=== PATIENT | male | born 1985 | race Two or more races ===

== ENCOUNTER 2017-01-25 04:18 | Inpatient (IN) | payer SELFPAY ==
[2017-01-25] MEDS ORDERED: IOPAMIDOL 370 (76%) IV.SOLN 150 ML IV ONE (04:19)
[2017-01-25] MEDS ORDERED: ONDANSETRON 4 MG/2ML 2 ML VIAL ONE ×2 (05:03→08:56)
[2017-01-25] MEDS ORDERED: LACTATED RINGERS 1,000 ML ONE (05:03)
[2017-01-25] MEDS ORDERED: HYDROMORPHONE HCL 1 MG/ML SYRINGE ONE ×2 (05:03→06:41)
[2017-01-25 05:14] LABS: ABSOLUTE NEUTROPHIL COUNT 13.9 K/mm3 (1.8-7.7); BASO % 0.1 % (0.2-1.0); HEMATOCRIT 43.6 % (32.0-52.0); IMM NEUT # 0.1 K/mm3 (0-0.2); IMM NEUT% 0.5 % (0-1); LYMPH # 1.1 (1.0-4.8); MEAN CELL VOLUME 81.5 fl (80.0-94.0); MEAN CORPUSCULAR HGB CONC 34.4 g/dl (33.0-37.0); MEAN PLATELET VOLUME 9.7 fl (7.4-10.4); MONO # 0.8 (0.0-0.8); MONO % 4.8 % (4-12); NEUT % 87.6 % (43-75); PLATELET COUNT 231 K/mm3 (130-400); RED CELL DISTRIBUTION WIDTH 11.9 % (11.5-14.5)
[2017-01-25 05:36] LABS: ALB/GLOB RATIO 1.2 (>1.0); ALBUMIN 4.5 gm/dL (3.5-5.7); CALCIUM 12.2 mg/dL (8.6-10.3)
[2017-01-25 06:10] LABS: PH,URINE 6.5 (5.0-8.0); URINE BILIRUBIN NEGATIVE (NEGATIVE); URINE BLOOD 3+ (NEGATIVE); URINE GLUCOSE (UA) NEGATIVE (NEGATIVE); URINE LEUKOCYTE ESTERASE NEGATIVE (NEGATIVE); URINE NITRITE NEGATIVE (NEGATIVE); URINE PROTEIN 2+ (NEGATIVE); URINE UROBILINOGEN NORMAL (0-1 mg/dl)
[2017-01-25 06:11] LABS: URINE COLOR AMBER
[2017-01-25 06:12] LABS: URINE APPEARANCE HAZY
[2017-01-25 06:21] LABS: URINE BACTERIA 0; URINE EPITHELIAL CELLS 0-2 /hpf; URINE RBC 50-60 /hpf
[2017-01-25] MEDS ORDERED: METRONIDAZOLE 500 MG/NS 100 ML 100 ML IV ONE (06:35)
[2017-01-25] MEDS ORDERED: CEFTRIAXONE 1 GRAM DUPLEX 50 ML IV ONE (07:10)
--- NOTE | 2017-01-25 07:12 | CT ---
EXAMINATION: Contrast enhanced CT scan of the abdomen and pelvis. CLINICAL INDICATION: Recent back surgery. Abdominal pain and vomiting. COMPARISON: None TECHNIQUE: Oral contrast: None Following uneventful administration of 125 mL of Isovue 370, intravenously axial images were acquired from just above the domes of the diaphragm to the iliac crest. A CT scan of the pelvis was also obtained from the iliac crest to the initial tuberosities. Stacked axial, sagittal, and coronal images were reviewed. Findings: Abdomen CT: (Contrast-enhanced): Lung bases exhibit mild dependent atelectasis. No mass or consolidation is identified. The liver exhibits diminished attenuation throughout compatible with fatty infiltration. There is cholelithiasis without evidence of cholecystitis or biliary obstruction. The spleen size and attenuation are within normal limits. The pancreas is normal in size and contours. No inflammatory stranding is identified. The pancreatic duct is unremarkable. The adrenals are unremarkable. The kidneys are without mass or hydronephrosis. No nephrolithiasis is identified. The abdominal aorta unremarkable. There is no retroperitoneal adenopathy identified. The stomach is unremarkable. The visualized segments of small and large bowel are within normal limits. The osseous structures exhibit no displaced fracture. No lytic or blastic lesions are identified. Pelvic CT: (Contrast -enhanced): There is appendicitis. The appendix is dilated up to approximately 1.7 cm. Appendicoliths are present. There is adjacent mesenteric inflammatory stranding. Currently there is no evidence of perforation or abscess. The bladder and distal ureters are unremarkable. No adenopathy is identified. The distal abdominal aorta and iliac vessels are within normal limits. The visualized segments of small and large bowel are within normal limits. Prostate and seminal vesicles are within normal limits. A small slip of free fluid is noted within the pelvis. No displaced fractures are identified. There are no gross osteolytic or blastic lesions. The overlying soft tissues are unremarkable. IMPRESSION: 1. Appendicitis currently without evidence of perforation or abscess. 2. Cholelithiasis. 3. Fatty infiltration liver. 4. Mild bibasilar atelectasis. Findings were communicated by [facility] to the emergency department at: 6:19 AM 01/25/2017
[2017-01-25 07:50] VITALS: BMI 31.0
[2017-01-25] MEDS ORDERED: HYDROMORPHONE HCL 1 MG/ML SYRINGE IV PRN ×2 (07:59→09:56)
[2017-01-25] MEDS ORDERED: BLISTEX LIPSTICK 1 EACH TP PRN ×2 (07:59→12:09)
[2017-01-25] MEDS ORDERED: MENTHOL/CETYLPYRD 1 EACH LOZENGE PO PRN ×2 (07:59→12:09)
[2017-01-25] MEDS ORDERED: LACTATED RINGERS 1,000 ML IV SCH ×2 (08:00→10:00)
[2017-01-25] MEDS ORDERED: HYDROMORPHONE HCL 0.5 MG/0.5 ML SYRINGE IV PRN (08:11)
[2017-01-25] MEDS ORDERED: PUMP TUBING ONE (08:13)
--- NOTE | 2017-01-25 08:41 | PDOC1 ---
HPI: Date of Admission: 01/25/17 Chief Complaint: Abdominal pain History of Present Illness: 32 y/o M with recent back surgery who developed abdominal pain a couple days ago. It started up higher in the abdomen and now is lower down. He says it hurts all over. He has been vomiting a lot. No fevers/chills that he is aware of. No diarrhea. No sick contacts. No other symptoms. He couldn't take the pain/vomiting any more and came in to the ED this morning. Last think to drink was a couple sips of water at 2am. Last thing to eat was fruit last night which he promptly threw up. PMH: Back pain PSH: finger surgery, back surgery (1 week ago) Meds: none Allergies: NKDA FH: Mother of a heart attack at 70 SH: denies tobacco, denies illicit drug use. Occasional ETOH - Review of Systems Reports Shortness of Breath, Reports Nausea, Reports Vomiting, Denies Chest Pain , Denies Diarrhea, Denies Headache, Denies Other H&P Objective GS - Objective Vital Signs Temperature 97.0 F 01/25/17 07:30 Pulse Rate 95 01/25/17 07:30 Respiratory Rate 18 01/25/17 07:30 Blood Pressure 152/90 01/25/17 07:30 O2 Saturation by Pulse Oximetry 100 01/25/17 07:30 Oxygen Delivery Method Room Air Oxygen Flow Rate 0 General: Alert, Oriented x3, Cooperative, No Acute Distress HEENT: Atraumatic, PERRLA, EOMI, Mucous membr. moist/pink Lungs: Clear to Auscultation Bilaterally, Normal Air Movement Cardiovascular: Regular Rate and Rhythm, Normal S1, Normal S2. negative: Murmur Abdomen: Soft, Tenderness (throughout, positive rovsing's sign. localized peritoneal signs RLQ) Skin: Normal Color, Warm, Dry, Intact Psych/Mental Status: Normal Affect, Normal Mood - Assessment/ Plan (1) Acute appendicitis with localized peritonitis Current Visit: Yes Status: Acute Code: K35.3 Inflammation surrounding appendix and fecalith within the appendix. Appendix is dilated with thickened wall. Not sure if it is perforated or not. He needs surgery. I discussed risks/benefits/alternatives with him. I answered his questions. He understands and wishes to proceed. I discussed difference in outcome perforated vs not and possible need for additional time in the hospital with antibiotics and a drain. He understands. - Procedure, Risks, Alternatives, Question PARQ: I discussed the procedure of Laparsocopic appendectomy. We discussed risks including bleeding, infection, injury to the Bowel and possible need to leave a drain. I addressed the patient's concerns and questions. The patient expressed understanding and willingness to proceed.
[2017-01-25] MEDS ORDERED: LIDOCAINE 1%/EPI 1:100,000 (MULTI DOSE) 30 ML VIAL ONE (08:53)
[2017-01-25] MEDS ORDERED: FENTANYL 5 ML ONE ×2 (08:56→10:01)
[2017-01-25] MEDS ORDERED: ROCURONIUM BROMIDE 10 MG/ML DOSE IV ONE ×4 (08:56→09:55)
[2017-01-25] MEDS ORDERED: MIDAZOLAM HCL 5 MG/5 ML VIAL ONE (08:56)
[2017-01-25] MEDS ORDERED: KETOROLAC TROMETHAMINE 30 MG/ML 1 ML VIAL ONE (08:56)
[2017-01-25] MEDS ORDERED: PROPOFOL 20 ML IV ONE (08:56)
[2017-01-25] MEDS ORDERED: LIDOCAINE 2% (MULTI DOSE) 10 ML VIAL ONE (08:56)
[2017-01-25] MEDS ORDERED: MIDAZOLAM HCL 1 MG/ML 2ML VIAL ONE (08:59)
[2017-01-25] MEDS ORDERED: CIPROFLOXACIN IV 400 MG 400 MG in Premix (D5W) 200 ml 1 EACH IV SCH (09:00)
[2017-01-25] MEDS ORDERED: HYDROMORPHONE HCL 2 MG/ML SYRINGE ONE (09:44)
[2017-01-25] MEDS ORDERED: PROMETHAZINE HCL 25 MG/ML VIAL IM PRN (09:56)
[2017-01-25] MEDS ORDERED: FENTANYL 100 MCG/2 ML VIAL IV PRN (09:56)
[2017-01-25] MEDS ORDERED: ONDANSETRON 4 MG/2ML 2 ML VIAL IV PRN (09:56)
[2017-01-25] MEDS ORDERED: GLYCOPYRROLATE 0.2 MG/ML 1ML VIAL ONE (10:06)
[2017-01-25] MEDS ORDERED: NEOSTIGMINE METHYLSULFATE 1 MG/ML DOSE ONE (10:06)
[2017-01-25] MEDS ORDERED: FENTANYL 100 MCG/2 ML VIAL ONE ×2 (10:37→11:44)
--- NOTE | 2017-01-25 11:07 | PCMON ---
Date of Procedure: 01/25/17 Start Time: PREOPERATIVE DIAGNOSIS Acute appendicitis. POSTOPERATIVE DIAGNOSIS Acute appendicitis with perforation. PROCEDURE PERFORMED Laparoscopic appendectomy. COMPLICATIONS None. OPERATIVE FINDINGS Acute appendicitis with perforation ESTIMATED BLOOD LOSS 30 ml BRIEF INDICATIONS PIOTR JAQUEZ is a 32 year old M patient that was admitted with symptoms of acute appendicitis. The preoperative CBC revealed a elevated WBC, physical examination demonstrated RLQ abdominal tenderness, and CT scan supported the diagnosis of acute appendicitis. Risks and benefits of surgery were explained to the patient, and the possible need for conversion to open technique. The patient declined the possible alternatives and agreed to proceed with surgery, providing informed consent. DESCRIPTION OF PROCEDURE The patient was brought to the operating room and placed supine on the operating room table. A surgical briefing was held to verify the correct patient and correct procedure. A general anesthetic was induced uneventfully, followed by the administration of a subcutaneous heparin injection and perioperative antibiotics. Pneumatic compression stockings were placed on the legs and powered on. The abdomen was prepped and draped in a sterile fashion. A 5-mm direct optical view trocar was used to enter the Right upper quadrant under direct vision of the abdominal wall layers. Once inside the abdominal cavity, a pneumoperitoneum was created. No injury to underlying structures occurred with placement of this trocar. Once inside the abdominal cavity, an additional 12-mm port was placed periumbilically in the midline. An additional 5-mm port was placed in the Left lower quadrant. All trocars were placed under direct visualization. There was no injury to underlying structures with placement of these trocars. The patient was placed in Trendelenburg position with the right side up. The appendix was visualized at the base of the cecum. The appendix was mobilized allowing identification of the mesoappendix and the base of the appendix. The cecum was not involved by the appendiceal inflammation. A window was created at the base between the appendix and the mesoappendix, and the appendix was then amputated at its base with a blue load Endo JAYY stapler. There was a large amount of inflammation and purulence around the appendix. Dissection of the mesentery was done with a ligature and there was some oozing that was controlled with the ligature. The area was irrigated with a liter of warm normal saline to remove the purulence and blood. The appendix was then removed through the 12-mm midline port using an Endocatch bag. The staple lines were evaluated for hemostasis; no hemorrhage was identified. The RLQ was irrigated with warm saline. A 10F flat drain was placed in the RLQ through the LLQ port. The left lower quadrant and periumbilical ports were removed under direct laparoscopic vision, and the incisions were hemostatic. The pneumoperitoneum was then evacuated. The fascia of the 12-mm port was closed with 0 Vicryl. All of the ports and instruments were removed. The skin was closed with 4-0 absorbable subcuticular sutures. Steri-Strips were placed over the incisions and sterile dressings applied. The needle and sponge counts were correct x2 at the completion of the procedure. The patient had no apparent intraoperative complication identified.
[2017-01-25] MEDS ORDERED: MAG HYDROX/AL HYDROX/SIMETH 30 ML UDCUP PO PRN (12:09)
[2017-01-25] MEDS ORDERED: MAGNESIUM HYDROXIDE 30 ML UDCUP PO PRN (12:09)
[2017-01-25] MEDS ORDERED: OXYCODONE/ACETAMINOPHEN 5/325 MG TABLET PO PRN (12:09)
[2017-01-25] MEDS ORDERED: BISACODYL 10 MG SUP PR PRN (12:09)
[2017-01-25] MEDS ORDERED: METRONIDAZOLE 500 MG/NS 100 ML 500 MG in Premix (D5W) 100 ml 1 EACH IV SCH (12:30)
[2017-01-25] MEDS ORDERED: PIPERACILLIN-TAZO PREMIX BAG 50 ML IV SCH (12:30)
[2017-01-25] MEDS: PIPERACILLIN-TAZO PREMIX BAG 3.375 G in Premix (D5W) 50 ml 1 EACH IV SCH ×2 (13:01→18:31)
[2017-01-25] MEDS: HYDROMORPHONE HCL 1 MG/ML SYRINGE IV PRN (13:49)
[2017-01-25] MEDS ORDERED: ACETAMINOPHEN 325 MG TABLET PO PRN (14:30)
[2017-01-25] MEDS: HYDROMORPHONE HCL 0.5 MG/0.5 ML SYRINGE IV PRN ×3 (16:51→23:42)
[2017-01-25] MEDS: LACTATED RINGERS 1,000 ML IV SCH (19:38)
[2017-01-25] MEDS: DOCUSATE SODIUM 100 MG CAPSULE PO SCH (20:48)
[2017-01-26] MEDS: PIPERACILLIN-TAZO PREMIX BAG 3.375 G in Premix (D5W) 50 ml 1 EACH IV SCH ×4 (01:01→19:54)
[2017-01-26] MEDS: HYDROMORPHONE HCL 0.5 MG/0.5 ML SYRINGE IV PRN ×4 (02:40→08:28)
[2017-01-26] MEDS: LACTATED RINGERS 1,000 ML IV SCH ×4 (04:34→22:59)
[2017-01-26 06:15] LABS: HEMATOCRIT 41.9 % (32.0-52.0); HEMOGLOBIN 13.9 gm/l (14.0-18.0); MEAN CORPUSCULAR HEMOGLOBIN 28.2 pg (27.0-31.0); MEAN CORPUSCULAR HGB CONC 33.2 g/dl (33.0-37.0); RED CELL DISTRIBUTION WIDTH 12.5 % (11.5-14.5)
[2017-01-26 06:21] LABS: ALB/GLOB RATIO 1.1 (>1.0); ALBUMIN 3.6 gm/dL (3.5-5.7); CALCIUM 9.5 mg/dL (8.6-10.3)
[2017-01-26] MEDS: DOCUSATE SODIUM 100 MG CAPSULE PO SCH ×2 (08:29→21:18)
[2017-01-26] MEDS: HYDROMORPHONE HCL 1 MG/ML SYRINGE IV PRN ×5 (10:12→22:59)
[2017-01-27] MEDS: PIPERACILLIN-TAZO PREMIX BAG 3.375 G in Premix (D5W) 50 ml 1 EACH IV SCH ×4 (01:48→18:40)
[2017-01-27] MEDS: HYDROMORPHONE HCL 1 MG/ML SYRINGE IV PRN ×4 (01:53→20:05)
[2017-01-27] MEDS: LACTATED RINGERS 1,000 ML IV SCH ×2 (08:02→16:30)
--- NOTE | 2017-01-27 09:17 | PDOC43 ---
- Subjective late entry: seen at 10am 01/26/17 Subjective: Reports Flatus, Reports Pain Tolerable, Reports Nausea, Reports Distention, Reports Fever, Denies Bowel Movement - Objective Vital Signs Temperature 98.6 F 01/27/17 07:38 Pulse Rate 106 01/27/17 07:38 Respiratory Rate 18 01/27/17 07:38 Blood Pressure 115/83 01/27/17 07:38 O2 Saturation by Pulse Oximetry 92 01/27/17 07:38 Oxygen Delivery Method Room Air Oxygen Flow Rate 0 Laboratory 01/26/17 05:30 01/26/17 05:30 Active Medication Orders Category Date Time Status Acetaminophen [Tylenol] Med 01/25/17 14:30 Active 650 mg PO Q6H PRN Bisacodyl [Dulcolax] Med 01/25/17 12:09 Active 10 mg [place] DAILY PRN Docusate Sodium [Colace] Med 01/25/17 21:00 Active 100 mg PO BID Hydromorphone HCl [Dilaudid] Med 01/25/17 12:09 Active 0.5 - 1 mg IV Q1H PRN Hydromorphone HCl [Dilaudid] Med 01/25/17 12:18 Active 0.5 - 1 mg IV Q1H PRN Ketorolac Tromethamine [Toradol] Med 01/27/17 12:00 Active 30 mg IV Q6HR Lactated Ringers 1,000 ml Med 01/25/17 12:09 Active IV 125 mls/hr Lip [place] [Blistex] Med 01/25/17 12:09 Active 1 each TP PRN PRN Magnesium Hydroxide [Milk of Magnesia] Med 01/25/17 12:09 Active 30 ml PO DAILY PRN Magnesium/Al Hydrox/Simeth [Maalox Plus] Med 01/25/17 12:09 Active 30 ml PO Q4H PRN Menthol/Cetylpyridinium [Cepacol] Med 01/25/17 12:09 Active 1 each PO PRN PRN Ondansetron 4 mg/2ml Vial [Zofran] Med 01/25/17 12:09 Active 4 mg IV Q4H PRN Oxycodone HCl/Acetaminophen [Percocet 5/325] Med 01/25/17 12:09 Active 1 - 2 tab PO Q4H PRN Piperacillin-Tazo Premix Bag [Zosyn 3.375 G] 3.375 g Med 01/25/17 12:45 Active Premix (D5W) 50 ml 1 each IV Q6H Sodium Chloride 0.9% Flush [Normal Saline 10ml Flush] Med 01/25/17 12:09 Active 10 - 50 ml IV PRN PRN Sodium Chloride 0.9% Flush [Normal Saline 10ml Flush] Med 01/25/17 17:00 Active 10 ml IV Q8HR Intake and Output 01/25/17 01/26/17 01/27/17 23:59 23:59 23:59 Intake Total 2535 1989 1710 Output Total 515 2360 1130 Balance 2020 -371 580 Tubes and Drains Output NEHA #1 80 NEHA #1 125 General: Alert, Oriented x3, Cooperative, No Acute Distress HEENT: Atraumatic, PERRLA, EOMI, Mucous membr. moist/pink Lungs: Clear to Auscultation Bilaterally, Normal Air Movement Abdomen: Soft, Tenderness (appropriate), Distention, Normal Bowel Sounds Wound: Dressing Clean/Dry/Intact Psych/Mental Status: Normal Affect, Normal Mood - Assessment/ Plan (1) Acute appendicitis with localized peritonitis Status: AcuteAssessment/ Plan: POD#1 looks like he has an ileus, not suprising told him to take it slow, not eat if he doesn't feel like it work on pain control ambulate. continue ABX
--- NOTE | 2017-01-27 09:18 | PDOC43 ---
- Subjective Subjective: Reports Flatus, Reports Pain Tolerable (still needing IV), Reports Bloating, Reports Distention, Denies Bowel Movement, Denies Nausea, Denies Fever - Objective Vital Signs Temperature 98.6 F 01/27/17 07:38 Pulse Rate 106 01/27/17 07:38 Respiratory Rate 18 01/27/17 07:38 Blood Pressure 115/83 01/27/17 07:38 O2 Saturation by Pulse Oximetry 92 01/27/17 07:38 Oxygen Delivery Method Room Air Oxygen Flow Rate 0 Laboratory 01/26/17 05:30 01/26/17 05:30 Active Medication Orders Category Date Time Status Acetaminophen [Tylenol] Med 01/25/17 14:30 Active 650 mg PO Q6H PRN Bisacodyl [Dulcolax] Med 01/25/17 12:09 Active 10 mg [place] DAILY PRN Docusate Sodium [Colace] Med 01/25/17 21:00 Active 100 mg PO BID Hydromorphone HCl [Dilaudid] Med 01/25/17 12:09 Active 0.5 - 1 mg IV Q1H PRN Hydromorphone HCl [Dilaudid] Med 01/25/17 12:18 Active 0.5 - 1 mg IV Q1H PRN Ketorolac Tromethamine [Toradol] Med 01/27/17 12:00 Active 30 mg IV Q6HR Lactated Ringers 1,000 ml Med 01/25/17 12:09 Active IV 125 mls/hr Lip [place] [Blistex] Med 01/25/17 12:09 Active 1 each TP PRN PRN Magnesium Hydroxide [Milk of Magnesia] Med 01/25/17 12:09 Active 30 ml PO DAILY PRN Magnesium/Al Hydrox/Simeth [Maalox Plus] Med 01/25/17 12:09 Active 30 ml PO Q4H PRN Menthol/Cetylpyridinium [Cepacol] Med 01/25/17 12:09 Active 1 each PO PRN PRN Ondansetron 4 mg/2ml Vial [Zofran] Med 01/25/17 12:09 Active 4 mg IV Q4H PRN Oxycodone HCl/Acetaminophen [Percocet 5/325] Med 01/25/17 12:09 Active 1 - 2 tab PO Q4H PRN Piperacillin-Tazo Premix Bag [Zosyn 3.375 G] 3.375 g Med 01/25/17 12:45 Active Premix (D5W) 50 ml 1 each IV Q6H Sodium Chloride 0.9% Flush [Normal Saline 10ml Flush] Med 01/25/17 12:09 Active 10 - 50 ml IV PRN PRN Sodium Chloride 0.9% Flush [Normal Saline 10ml Flush] Med 01/25/17 17:00 Active 10 ml IV Q8HR Intake and Output 01/25/17 01/26/17 01/27/17 23:59 23:59 23:59 Intake Total 2535 1988 1710 Output Total 515 2360 1130 Balance 2020 -371 580 Tubes and Drains Output NEHA #1 80 NEHA #1 125 General: Alert, Oriented x3, Cooperative, No Acute Distress HEENT: Atraumatic, PERRLA, EOMI, Mucous membr. moist/pink Lungs: Clear to Auscultation Bilaterally, Normal Air Movement Cardiovascular: Regular Rate and Rhythm, Normal S1, Normal S2, No Murmur Abdomen: Soft, Distention Wound: Dressing Clean/Dry/Intact, Well Approximated Psych/Mental Status: Normal Affect, Normal Mood - Assessment/ Plan (1) Acute appendicitis with localized peritonitis Status: AcuteAssessment/ Plan: POD#2 looks like he has an ileus, not suprising told him to take it slow, not eat if he doesn't feel like it work on pain control, added toradol ambulate. continue ABX start bowel regimen (may be constipated as well from pain medication from back surgery)
[2017-01-27 09:54] LABS: HEMATOCRIT 41.7 % (32.0-52.0); MEAN CELL VOLUME 84.6 fl (80.0-94.0); MEAN CORPUSCULAR HEMOGLOBIN 28.4 pg (27.0-31.0); MEAN CORPUSCULAR HGB CONC 33.6 g/dl (33.0-37.0); RED CELL DISTRIBUTION WIDTH 12.4 % (11.5-14.5)
[2017-01-27] MEDS: POLYETHYLENE GLYCOL 3350 17 G POWD.SUSP PO SCH (10:41)
[2017-01-27] MEDS: DOCUSATE SODIUM 100 MG CAPSULE PO SCH ×2 (10:41→21:00)
[2017-01-27] MEDS: HYDROMORPHONE HCL 0.5 MG/0.5 ML SYRINGE IV PRN (10:42)
[2017-01-27] MEDS ORDERED: PUMP TUBING ONE (13:14)
[2017-01-27] MEDS: KETOROLAC TROMETHAMINE 30 MG/ML 1 ML VIAL IV SCH ×3 (13:20→23:51)
[2017-01-27] MEDS: ONDANSETRON 4 MG/2ML 2 ML VIAL IV PRN (13:32)
[2017-01-28] MEDS ORDERED: IV START KIT ONE ×2 (00:39→04:59)
[2017-01-28] MEDS ORDERED: SODIUM CHLORIDE 0.9% FLUSH 10 ML ONE ×2 (00:39→04:59)
[2017-01-28] MEDS: HYDROMORPHONE HCL 1 MG/ML SYRINGE IV PRN ×3 (01:05→18:26)
[2017-01-28] MEDS: PIPERACILLIN-TAZO PREMIX BAG 3.375 G in Premix (D5W) 50 ml 1 EACH IV SCH ×4 (01:06→18:26)
[2017-01-28] MEDS: LACTATED RINGERS 1,000 ML IV SCH ×4 (03:41→22:38)
[2017-01-28] MEDS: KETOROLAC TROMETHAMINE 30 MG/ML 1 ML VIAL IV SCH ×3 (05:11→17:57)
[2017-01-28] MEDS: ONDANSETRON 4 MG/2ML 2 ML VIAL IV PRN ×3 (05:16→22:42)
[2017-01-28 06:58] LABS: HEMATOCRIT 36.6 % (32.0-52.0); HEMOGLOBIN 12.1 gm/l (14.0-18.0); MEAN CELL VOLUME 84.5 fl (80.0-94.0); MEAN CORPUSCULAR HEMOGLOBIN 27.9 pg (27.0-31.0); MEAN CORPUSCULAR HGB CONC 33.1 g/dl (33.0-37.0); RED CELL DISTRIBUTION WIDTH 12.1 % (11.5-14.5)
[2017-01-28] MEDS ORDERED: PROMETHAZINE HCL 25 MG TABLET PO PRN (08:58)
[2017-01-28] MEDS: POLYETHYLENE GLYCOL 3350 17 G POWD.SUSP PO SCH (09:00)
[2017-01-28] MEDS: DOCUSATE SODIUM 100 MG CAPSULE PO SCH ×2 (09:01→20:17)
--- NOTE | 2017-01-28 09:32 | PDOC43 ---
- Subjective Subjective: Reports Flatus (minimal), Reports Pain Tolerable (using quite a lot of dilaudid though), Reports Bloating, Reports Vomitting, Reports Nausea, Denies Bowel Movement - Objective Vital Signs Temperature 98.6 F 01/28/17 07:00 Pulse Rate 100 01/28/17 07:00 Respiratory Rate 20 01/28/17 07:00 Blood Pressure 136/94 01/28/17 07:00 O2 Saturation by Pulse Oximetry 97 01/28/17 07:00 Oxygen Delivery Method Room Air Oxygen Flow Rate 0 Laboratory 01/28/17 06:15 01/26/17 05:30 01/28/17 06:15 RBC 4.33 L Active Medication Orders Category Date Time Status Acetaminophen [Tylenol] Med 01/25/17 14:30 Active 650 mg PO Q6H PRN Bisacodyl [Dulcolax] Med 01/25/17 12:09 Active 10 mg [place] DAILY PRN Docusate Sodium [Colace] Med 01/25/17 21:00 Active 100 mg PO BID Hydromorphone HCl [Dilaudid] Med 01/25/17 12:09 Active 0.5 - 1 mg IV Q1H PRN Hydromorphone HCl [Dilaudid] Med 01/25/17 12:18 Active 0.5 - 1 mg IV Q1H PRN Ketorolac Tromethamine [Toradol] Med 01/27/17 12:00 Active 30 mg IV Q6HR Lactated Ringers 1,000 ml Med 01/25/17 12:09 Active IV 125 mls/hr Lip [place] [Blistex] Med 01/25/17 12:09 Active 1 each TP PRN PRN Magnesium Hydroxide [Milk of Magnesia] Med 01/25/17 12:09 Active 30 ml PO DAILY PRN Magnesium/Al Hydrox/Simeth [Maalox Plus] Med 01/25/17 12:09 Active 30 ml PO Q4H PRN Menthol/Cetylpyridinium [Cepacol] Med 01/25/17 12:09 Active 1 each PO PRN PRN Ondansetron 4 mg/2ml Vial [Zofran] Med 01/25/17 12:09 Active 4 mg IV Q4H PRN Oxycodone HCl/Acetaminophen [Percocet 5/325] Med 01/25/17 12:09 Active 1 - 2 tab PO Q4H PRN Piperacillin-Tazo Premix Bag [Zosyn 3.375 G] 3.375 g Med 01/25/17 12:45 Active Premix (D5W) 50 ml 1 each IV Q6H Polyethylene Glycol 3350 [Miralax] Med 01/27/17 09:30 Active 17 g PO DAILY Promethazine HCl [Phenergan] Med 01/28/17 08:58 Ordered 25 mg PO Q6H PRN Sodium Chloride 0.9% Flush [Normal Saline 10ml Flush] Med 01/25/17 12:09 Active 10 - 50 ml IV PRN PRN Sodium Chloride 0.9% Flush [Normal Saline 10ml Flush] Med 01/25/17 17:00 Active 10 ml IV Q8HR Intake and Output 01/26/17 01/27/17 01/28/17 23:59 23:59 23:59 Intake Total 1988 4274 1594 Output Total 0 5 420 Balance -371 2249 1174 Tubes and Drains Output NEHA #1 20 NEHA #1 70 NEHA #1 50 General: Alert, Oriented x3, Cooperative, No Acute Distress HEENT: Atraumatic, PERRLA, EOMI, Mucous membr. moist/pink Lungs: Clear to Auscultation Bilaterally, Normal Air Movement Cardiovascular: Regular Rate and Rhythm, Normal S1, Normal S2, No Murmur Abdomen: Soft, Tenderness (appropriate), Distention, Hypoactive Bowel Sounds Wound: Dressing Clean/Dry/Intact - Assessment/ Plan (1) Acute appendicitis with localized peritonitis Status: AcuteAssessment/ Plan: POD#3 looks like he has an ileus told him to take it slow, not eat if he doesn't feel like it work on pain control, added toradol ambulate. continue ABX start bowel regimen (may be constipated as well from pain medication from back surgery) Tachycardia was from sepsis from perforated appendicitis
--- NOTE | 2017-01-28 12:22 | SURGPATH ---
[facility] [address] [place] [id number] Patient Name: PIOTR WALTERS MR#: [id number] : 1985 Gender: M Specimen #: [id number] Collected: 01/25/2017 Received: 01/27/2017 Reported: 01/28/2017 Submitting Phys: REILLY SERRATO Copy [facility] Phys[facility] Clinical History / Pre-Operative Diagnosis: Appendicitis Specimen Source / Surgical Procedure Performed: Appendix Interpretation: APPENDIX: - ACUTE APPENDICITIS WITH TRANSMURAL PERFORATION AND SEROSAL INFLAMMATORY EXUDATE. - LUMINAL FECALITHS. Electronically Signed Out Elli Seymour M.D. Gross Description: The specimen is received in formalin labeled with the patient's name and "appendix ". The specimen consists of a 7.0 by up to 1.0 cm vermiform appendix with attached indurated, hemorrhagic mesoappendix. The presumed base is stapled and marked with black ink. Sectioning reveals multiple fecaliths which are up to 1 cm. The central appendix appears disrupted making the lumen difficult to identify. 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 A. base and tip [employer]. paper sales representative central abnormal appendix PAUL Dubon Microscopic Description: Sections of the appendix show abundant acute inflammation involving the appendiceal mucosa and wall. In one of the sections, there is a transmural perforation with spillage of acute inflammation out to the serosal surface where there is a fibrinous inflammatory exudate. There is no evidence of neoplasm. 1: 17474 K35.80
[2017-01-29] MEDS: KETOROLAC TROMETHAMINE 30 MG/ML 1 ML VIAL IV SCH ×3 (00:14→12:37)
[2017-01-29] MEDS: PIPERACILLIN-TAZO PREMIX BAG 3.375 G in Premix (D5W) 50 ml 1 EACH IV SCH ×3 (00:14→12:37)
[2017-01-29] MEDS: ONDANSETRON 4 MG/2ML 2 ML VIAL IV PRN (05:54)
[2017-01-29] MEDS: LACTATED RINGERS 1,000 ML IV SCH (08:01)
[2017-01-29] MEDS: DOCUSATE SODIUM 100 MG CAPSULE PO SCH (08:32)
--- NOTE | 2017-01-29 11:53 | PDOC43 ---
- Subjective Subjective: Reports Flatus, Reports Pain Tolerable (much improved), Reports Bowel Movement - Objective Vital Signs Temperature 97.8 F 01/29/17 11:37 Pulse Rate 92 01/29/17 11:37 Respiratory Rate 20 01/29/17 11:37 Blood Pressure 146/96 01/29/17 11:37 O2 Saturation by Pulse Oximetry 97 01/29/17 11:37 Oxygen Delivery Method Room Air Oxygen Flow Rate 0 Laboratory 01/28/17 06:15 01/26/17 05:30 Active Medication Orders Category Date Time Status Acetaminophen [Tylenol] Med 01/25/17 14:30 Active 650 mg PO Q6H PRN Bisacodyl [Dulcolax] Med 01/25/17 12:09 Active 10 mg [place] DAILY PRN Docusate Sodium [Colace] Med 01/25/17 21:00 Active 100 mg PO BID Hydromorphone HCl [Dilaudid] Med 01/25/17 12:09 Active 0.5 - 1 mg IV Q1H PRN Ketorolac Tromethamine [Toradol] Med 01/27/17 12:00 Active 30 mg IV Q6HR Lactated Ringers 1,000 ml Med 01/25/17 12:09 Active IV 125 mls/hr Lip [place] [Blistex] Med 01/25/17 12:09 Active 1 each TP PRN PRN Magnesium Hydroxide [Milk of Magnesia] Med 01/25/17 12:09 Active 30 ml PO DAILY PRN Magnesium/Al Hydrox/Simeth [Maalox Plus] Med 01/25/17 12:09 Active 30 ml PO Q4H PRN Menthol/Cetylpyridinium [Cepacol] Med 01/25/17 12:09 Active 1 each PO PRN PRN Ondansetron 4 mg/2ml Vial [Zofran] Med 01/25/17 12:09 Active 4 mg IV Q4H PRN Oxycodone HCl/Acetaminophen [Percocet 5/325] Med 01/25/17 12:09 Active 1 - 2 tab PO Q4H PRN Piperacillin-Tazo Premix Bag [Zosyn 3.375 G] 3.375 g Med 01/25/17 12:45 Active Premix (D5W) 50 ml 1 each IV Q6H Polyethylene Glycol 3350 [Miralax] Med 01/27/17 09:30 Active 17 g PO DAILY Promethazine HCl [Phenergan] Med 01/28/17 08:58 Active 25 mg PO Q6H PRN Sodium Chloride 0.9% Flush [Normal Saline 10ml Flush] Med 01/25/17 12:09 Active 10 - 50 ml IV PRN PRN Sodium Chloride 0.9% Flush [Normal Saline 10ml Flush] Med 01/25/17 17:00 Active 10 ml IV Q8HR Intake and Output 01/27/17 01/28/17 01/29/17 23:59 23:59 23:59 Intake Total 4274 3094 200 Output Total 2024 975 620 Balance 2249 2119 -420 Tubes and Drains Output NEHA #1 20 NEHA #1 30 General: Alert, Oriented x3, Cooperative, No Acute Distress HEENT: Atraumatic, PERRLA, EOMI, Mucous membr. moist/pink Lungs: Clear to Auscultation Bilaterally, Normal Air Movement Cardiovascular: Regular Rate and Rhythm, Normal S1, Normal S2, No Murmur Abdomen: Soft, Tenderness (appropriate), No Non-Distended Psych/Mental Status: Normal Affect, Normal Mood - Assessment/ Plan (1) Acute appendicitis with localized peritonitis Status: AcuteAssessment/ Plan: POD#4 Doing much better today No fevers/WBC down as of yesterday started having BMs and pain improved no nausea today and burt clears advance diet and home later this afternoon if continues to do well.
[2017-01-29] MEDS: POLYETHYLENE GLYCOL 3350 17 G POWD.SUSP PO SCH (12:29)
--- NOTE | 2017-01-29 12:55 | DS ---
Jacob Mcintyre [id number] : 1985 DATE OF ADMISSION: 01/25/2017 DATE OF DISCHARGE: 01/29/2017 ADMISSION DIAGNOSIS: Acute appendicitis. DISCHARGE DIAGNOSIS: Ruptured appendicitis and ileus, as well as sepsis caused by ruptured appendicitis. PROCEDURE PERFORMED: Laparoscopic appendectomy. CONSULTATIONS: None. CONDITION ON DISCHARGE: Good. HOSPITAL COURSE: This is a 32-year-old male who was admitted to the hospital with acute appendicitis. He had quite a bit of inflammation around the appendix, but the base was clear. Able to remove the appendix laparoscopically, but it was ruptured and quite a lot of inflammation around it. The patient also had a history of recent back surgery and was constipated from that. Postoperatively he had fevers and an elevated white count. I felt a drain in and that was draining serous anginosus fluid. His white count came down, but he was still having bowel movement issues and was bloated and had an ileus. By postoperative day 4 though his nausea had finally resolved, he was having bowel movements, and he was able to start a clear liquid diet, and be advanced, and was able to be discharged home in good condition. He was given a prescription for Percocet for pain control and he is to follow up in the office in two weeks. JOB: [id number]
[2017-01-29 16:25] VITALS: BP 138/89
== END 2017-01-29 18:15 | disposition home or self-care (01) | DRG 338 ==
LOC: ED 04:18 → MS 06:57
PROVIDERS: ADMIT Surgery; ATTEND Surgery
PROC: 0DTJ4ZZ Resection of Appendix, Percutaneous Endoscopic Approach (ICD-10-PCS; principal; 2017-01-25)
DX: K35.3 Acute appendicitis with localized peritonitis (principal); A41.9 Sepsis, unspecified organism